=== PATIENT | female | born 2000 | race Caucasian/White ===

== ENCOUNTER 2024-05-04 22:07 | Emergency (ER) | payer OTHER, SELFPAY ==
[2024-05-04 22:10] VITALS: BP 125/83
--- NOTE | 2024-05-04 22:59 | ED.SKININJ ---
HPI-Injury
General
Chief Complaint: Skin Problem
Source: patient
Exam Limitations: none
Time Seen by Provider: 05/04/24 22:41
Nursing documentation reviewed up to this point in time: agreed with
History of Present Illness-Injury
Is this injury a work related problem?: No
Is pt an associate of [facility]/[place]?: No
Initial Injury comments:
Patient to ED for eval of wound on right lateral ankle. States she noted a scab at site 1 week ago. Now site is open and she reports itching. Denies fever/chills. Brought self to ED for eval.
Past History
Past History
ED Past Medical History: None
ED Past Surgical History: None
Review of Systems
Review of Systems
Allergies reviewed?: Yes
All Other Systems: ROS reviewed and negative except as documented in HPI and ROS
Constitutional: Reports no symptoms
Musculoskeletal: Reports no symptoms
Skin: Reports other (1cm oval open wound to right lateral ankle. Dry, no drainage noted on old dressing. Mild surrounding erythema.)
Neurological: Reports no symptoms
Psychiatric: Reports no symptoms
Phy Exam
General Physical Exam
General Presentation: well appearing and no apparent distress
General age: appears stated age
General Skin: warm and dry
General Habitus: normal
General Mental: alert
Musculoskeletal Exam
Musculoskeletal Exam: full ROM and neuro vasc intact
Skin Exam
Skin Exam: normal color, warm/dry and other (1cm oval open wound right lateral ankle. Mild surrounding erythema. No drainage, no pain. Reports pruritis at site. )
Psychiatric Exam
Psychiatric Exam: normal mood/affect
Course
Orders/Labs/Results
Orders:
Orders
05/04/24 22:54
Cephalexin Monohydrate [Keflex] 500 mg PO NOW STA
Vital Signs
Initial and Last Documented VS:
Initial Vital Signs
Temp Pulse Resp BP Pulse Ox
98.6 F 75 20 125/83 98
05/04/24 22:10 05/04/24 22:10 05/04/24 22:10 05/04/24 22:10 05/04/24 22:10
Last Documented Vital Signs
Temp Pulse Resp BP Pulse Ox
98.6 F 75 20 125/83 98
05/04/24 22:10 05/04/24 22:10 05/04/24 22:10 05/04/24 22:10 05/04/24 22:10
*Critical Care Note
Total Time (30-74mins, 75-104mins- exclusive of procedures): Not Applicable
Update Note
Update Note:
Patient to ED for eval of itchy wound to right lat anlke. Started approx 1 week ago. Mild erythema surrounding wound which has slowly expanded. No drainage. PRuritic Early cellulitis vs fungal infection.She will continue daily wound care with
mild soap/water. Will cover with Keflex 500mg tid. Add Lotrimin cream bid for possible fungal aspect. SHe will disharge home, follow up with PCP. Given instructions on s/s to return to ED and she is agreeable to plan.
ED Attending Note
-
Portions of this chart may have been created with voice recognition software.� Occasional wrong word or��sound alike� substitutions may have occurred due to the inherent limitations of voice recognition software.
Discharge Plan
Departure
Patient Disposition: Home (Routine Discharge)
Date of Disposition: 05/04/24
Time of Disposition: 22:55
Patient with high blood pressure during this ER visit?: No
Condition: Good
Covid-19: Not Applicable
Discharge Problem:
Ankle wound
Instructions: Wound Care (DC)
Prescriptions:
New
cephalexin 500 mg capsule
500 mg PO TID 7 Days Qty: 21 0RF
clotrimazole 1 % cream
1 applic topical BID Qty: 30 1RF
Activity Restrictions/Additional Instructions:
Follow up with your family docto. Return to the emergency department immediately for fever/chills, increasing pain/redness or swelling, or for any further concerns
Interventions
Interventions:
*Risk Screen - Suicide Last Done: 05/04/24 22:10
*General Assessment Last Done: 05/04/24 22:10
*Neglect/Abuse Screening Last Done: 05/04/24 22:10
Discharge Date and Time
Print Language: MALTESE
[2024-05-04] MEDS: KEFLEX 500 MG PO (23:01)
== END 2024-05-04 23:12 | disposition home or self-care (01) ==
LOC: EMR 22:07
PROVIDERS: EMERGENCY PHYSICIAN Emergency Medicine
DX: S91.001A Unspecified open wound, right ankle, initial encounter (principal); L29.9 Pruritus, unspecified; L53.9 Erythematous condition, unspecified; X58.XXXA Exposure to other specified factors, initial encounter; F41.9 Anxiety disorder, unspecified; F32.A Depression, unspecified
CPT/HCPCS: 99283